=== PATIENT | female | born 1985 | race Caucasian/White ===

== ENCOUNTER 2019-11-15 00:50 | Outpatient (CLI) | payer OTHER, SELFPAY ==
--- NOTE | 2019-11-15 | DI.US_ITS ---
EXAM: US PELVIS TRANSVAGINAL CLINICAL HISTORY: PELVIC AND PERINEAL PAIN, R10.2. TECHNIQUE: Transabdominal and tranvaginal imaging was performed using standard protocol. COMPARISON: No exams were available for comparison FINDINGS: KIDNEYS: Kidneys are symmetric in size. No evidence of renal calculi. No evidence of hydronephrosis. No renal mass or cyst identified. UTERUS: Anteverted. The uterus measures 10.2 x 6.2 x 7.6 cm. Endometrium: 12 millimeters. Internal vascularity is noted. Myometrium: Unremarkable. Cervix: Unremarkable. OVARIES: There are multiple tiny follicles. Right: Cyst or mass: None. Left: Cyst or mass: None. DOPPLER: Color: Symmetric and uniform flow to both ovaries. No hyperemia. CUL-DE-SAC: Free fluid: None. IMPRESSION: 1. Mildly thickened endometrium with increased vascularity.. 2. Multiple tiny bilateral ovarian follicles.. DATA REPOSITORY:
== END 2019-11-15 01:10 ==
PROVIDERS: PCP Physician Assistant; Visit Provider Obstetrics & Gynecology
DX: R10.2 Pelvic and perineal pain (principal); R93.89 Abnormal findings on diagnostic imaging of other specified body structures; N83.01 Follicular cyst of right ovary; N83.02 Follicular cyst of left ovary
CPT/HCPCS: 76830; 76856

== ENCOUNTER 2019-12-14 09:30 | Outpatient (CLI) | payer OTHER, SELFPAY ==
--- NOTE | 2019-12-14 13:31 | DI.RAD_ITS ---
EXAM: XR ELBOW RT COMPLETE CLINICAL HISTORY: PAIN IN RT ELBOW, M25.521. TECHNIQUE: 2D digital imaging was performed. COMPARISON: No exams were available for comparison FINDINGS: BONES: No acute fracture is present. No bony destructive lesion is seen. There is a single orthopedi c screw in the distal humerus. There is deformity of the distal humerus likely reflecting an old fra cture. JOINTS: The elbow is normally aligned. No joint effusion is seen. SOFT TISSUE: Normal. IMPRESSION: No acute abnormality. DATA REPOSITORY: RADIATION DOSE DELIVERED:
== END 2019-12-14 09:50 ==
PROVIDERS: PCP Physician Assistant; Visit Provider Nurse Practitioner Family
DX: M25.521 Pain in right elbow (principal)
CPT/HCPCS: 73080

== ENCOUNTER 2020-09-06 03:11 | Outpatient (CLI) | payer OTHER, SELFPAY ==
--- NOTE | 2020-09-06 | DI.US_ITS ---
EXAM: MG MAMMO DIAGNOSTIC BI CLINICAL HISTORY: MASTODYNIA,N64.4,LT BREAST PAIN OUTER NIPPLE. TECHNIQUE: Craniocaudal and mediolateral oblique Full Field Digital Mammography views with Computer Aided Diagnosis followed by Tomosynthesis and left breast ultrasound. COMPARISON: No exams were available for comparison baseline examination. FINDINGS: Mammography/Tomosynthesis: Masses/Architectural Distortion: None seen. Microcalcifictions: No suspicious pleomorphic-type are seen. Skin Thickening/Nipple Retraction: None. Axilla: Unremarkable. Breast US: Echotexture: Normal appearance of the glandular tissue. Shadowing: No suspicious foci. Cyst: None. Solid lesions: None seen. Ductal dilation: None. No skin thickening or edema. IMPRESSION: 1. No evidence of malignancy is noted. 2. Unless there is more urgent need, follow-up screening mammography is recommended, as per [place] [employer] guidelines. 3. The findings were discussed with the patient on the date of the examination. BI-RADS Category 1 - Negative Breast Density - Category B - Scattered areas of fibroglandular density A negative radiographic report should not delay biopsy if a dominant or clinically suspicious mass is present. Up to ten percent of cancers are not identified on mammography. A negative report may reinforce clinical impression. Adenosis and dense breasts may obscure an underlying neoplasm. False positive reports average 6 to 10%. Patient will receive a letter notifying them of these results.
== END 2020-09-06 03:12 ==
PROVIDERS: PCP Physician Assistant; Visit Provider Nurse Practitioner Family
DX: N64.4 Mastodynia (principal)
CPT/HCPCS: 76642; 77062; 77066; G0279

== ENCOUNTER 2023-09-09 18:11 | Emergency (ER) | payer OTHER, SELFPAY ==
[2023-09-09] VITALS (29 sets, daily range): BP systolic 156–242; BP diastolic 78–99; PULSE 87–127; RESP 13–23; TEMP 36.9; O2SAT 96–100
--- NOTE | 2023-09-09 18:00 | RT.EKG_ITS ---
APPROVED REPORT Exam: Resting ECG Reason for Exam: Near syncope Patient Location: E HR:118 bpm ECG Measurements Heart Rate 118 AXIS MA 166 P 54 QRSd 89 QRS 10 QT 331 T 33 QTc 463 Conclusion Sinus tachycardia...rate> 99 sinus tachycardia, normal axis, normal intervals, non ischemic
[2023-09-09 19:04] LABS: Abs Immature Grans 0.03 10^3/uL (0.0-0.06); Absolute Basophil Count 0.06 10^3/uL (0.0-0.2); Absolute Eosinophil Count 0.14 10^3/uL (0.0-0.7); Absolute Monocyte Count 0.53 10^3/uL (0.1-0.8); Basophils % 0.5; Eosinophils % 1.2; HCT 33.5 % (36.0-46.0); HGB 10.8 g/dL (11.2-15.7); Immature Grans % 0.3; Lymphocytes % 29.7; MCH 27.6 pg (27.0-33.0); MCHC 32.2 % (32.0-36.0); MCV 86 fL (80-95); MPV 9.7 fL (8.0-11.0); Monocytes % 4.6; Neutrophils % 63.7; Platelet Count 371 10^3/uL (130-400); RBC 3.92 10^6/uL (3.93-5.22); RDW 13.8 % (11.7-14.6); RDW-SD 43.1 fL; WBC 11.46 10^3/uL (4.4-10.8)
--- NOTE | 2023-09-09 19:07 | W.ED.GENAD ---
HPI General Date/Time Provider Initiated Documentation: 09/09/23 18:29. HPI Narrative: This 37-year-old female presents with report of vaginal bleeding since yesterday. She states that she has had significant periods and erratic bleeding for the past several months. She states that last evening she started bleeding and going through a pad every several hours, this morning she started having 1 pad per hour at around 11 and has gone through approximately 8 pads and felt very lightheaded which prompted her visit here. She is typically followed in [place]. She denies any chest pain or shortness of breath. She does endorse cramping in her abdomen. She denies any fever or chills. Denies chance of . Had a tubal 20 years ago per patient. Related Data Home Medications Medication Instructions Recorded Confirmed norethindrone acetate 5 mg tablet 10 mg (2 x 5 mg) PO BID #30 tabs 09/09/23 tranexamic acid 650 mg tablet 1,300 mg (2 x 650 mg) PO TID 5 09/09/23 days #30 tabs Previous Rx's Medication Instructions Recorded norethindrone acetate 5 mg tablet 10 mg (2 x 5 mg) PO BID #30 tabs 09/09/23 tranexamic acid 650 mg tablet 1,300 mg (2 x 650 mg) PO TID 5 09/09/23 days #30 tabs Allergies Allergy/AdvReac Type Severity Reaction Status Date / Time latex Allergy Severe Anaphylaxis Verified 09/09/23 21:50 General Stated Complaint: EPIC WILLOW ANALYST NAHED: 2 Course Vital Signs Vital signs: Vital Signs Temperature 36.9 C 09/09/23 18:16 Pulse 127 H 09/09/23 18:16 Respiratory Rate 20 09/09/23 18:16 Blood Pressure 242/99 H 09/09/23 18:16 Pulse Oximetry 96 09/09/23 18:16 Temperature 36.9 C 09/09/23 18:16 Temperature Source Temporal Artery Scan 09/09/23 18:16 Pulse 127 H 09/09/23 18:16 Respiratory Rate 20 09/09/23 18:16 Respiratory Effort Normal, Short of Breath 09/09/23 18:23 Blood Pressure 242/99 H 09/09/23 18:16 Pulse Oximetry 96 09/09/23 18:16 Pain Level 7 09/09/23 18:26 Medical Decision Making This 37-year-old female presents with vaginal bleeding, 1 pad an hour since 11, felt weak and dizzy today Patient is afebrile,, initially tachycardic but this is improved Patient is hypertensive She is bleeding, bright red blood with clots She was given TXA at 1000 mg followed by 10 mg of norethindrone, her bleeding is still dramatically and she has not had any additional bleeding in the emergency department She feels comfortable being discharged home at this time Case was discussed with Dr. Tejeda and she evaluates the patient in the emergency department Patient will follow-up with her doctor regarding her blood pressure and her EPIC WILLOW ANALYST Patient does endorse that she had endometrial biopsy yesterday which she was not transparent regarding during her initial assessment She states I was not expecting this much bleeding At this time I think she stable for discharge home, showing to be given an additional TXA and norenthindrone for home return precautions reviewed and pt expressed understanding Quality:SDOH Health Related Social Needs: No Data to Display PFSH All Active Problems (Updated 09/09/23 @ 21:45 by Hina Tejeda DO) Polycystic ovarian syndrome (Acute) Menometrorrhagia (Acute) Encounter for screening for other viral diseases (Acute) Social History Smoking/Tobacco Use Status: Never Smoking risk assessment performed?: Yes Alcohol Intake: current Alcohol Intake frequency: a few times a month Drug use: Occasionally Substance use type: former substance user Housing: house Do you feel safe at home: Yes Do you feel safe in your relationship?: Yes PAWSS Have you Been Recently Intoxicated or Drunk Within the Last 30 days?: No Have you Ever Experienced Previous Episodes of Alcohol Withdrawal?: No Have you ever Experienced Withdrawal Seizures?: No Have you ever Experienced Delirium Tremens(DT)s?: No Have you ever undergone Alcohol Rehabilitation Treatment (i.e, inpt ot outpatient treatment programs)?: No Have you ever Experienced Blackouts?: No Have you ever Combined Alcohol with other Downers within the last 90 days?: No Have you ever Combined Alcohol with any other Substance of Abuse during the last 90 days?: No Result: 0 Discharge Plan Disposition Patient Disposition: Home Condition: Stable Discharge Details Clinical Impression: Menometrorrhagia Primary Care Provider: Anil Chavez ED Provider: Imani Horner Home Meds and New Rx's Prescriptions: New norethindrone acetate 5 mg tablet 10 mg PO BID Qty: 30 0RF Rx Instructions: take 10 mg every 12 hours if you bleeding has improved and continue for 10 days, you may take an additional 10 mg every 6 hours if you have increased bleeding tranexamic acid 650 mg tablet 1,300 mg PO TID 5 Days Qty: 30 0RF Discharge Instructions Additional Instructions: Take the norethindrone, 10 mg twice a day for the next 10 days, if you develop increased bleeding you may take 10 mg every 6 hours TXA, 1300 mg every 8 hours Follow-up with your EPIC WILLOW ANALYST Return should you have new or worsening complaints Referrals: Anil Chavez [Primary Care Provider] -
[2023-09-09 19:19] LABS: Bilirubin Negative (Negative); Blood Large (Negative); Clarity Turbid (Clear); Glucose Negative (Negative); Ketones Negative (Negative); Leukocyte Esterase Trace (Negative); Nitrite Negative (Negative); Specific Gravity >= 1.030 (1.005-1.025); Urobilinogen 0.2 mg/dL (Up to 0.2); pH 5.5 (5-8)
[2023-09-09 19:23] LABS: ALT 33 U/L (14-59); AST 14 U/L (15-37); Albumin 3.7 g/dL (3.4-5.0); Alkaline Phosphatase 78 U/L (46-116); Anion Gap 9.4 mmol/L (3-11); BUN 10 mg/dL (7-18); Bilirubin, Total 0.2 mg/dL (0.2-1.0); CO2 26.6 mmol/L (21.0-32.0); CREATININE 0.8 mg/dL (0.55-1.02); Calcium 8.9 mg/dL (8.5-10.1); Chloride 105 mmol/L (98-107); Estimated GFR 96.66 (mL/min/1.73m2); Glucose 158 mg/dL (74-106); Potassium 3.4 mmol/L (3.5-5.1); Sodium 141 mmol/L (136-145); Total Protein 7.7 g/dL (6.4-8.2)
[2023-09-09 19:33] LABS: C & S Indicated? Yes; RBC >50 HPF (0-2)
[2023-09-09] MEDS: Tranexamic Acid 1,000 MG/10 ML VIAL 1000 MG IVP (19:34)
[2023-09-09] MEDS: Normal Saline 1,000 ML 1000 ML IV (19:35)
[2023-09-09 19:55] LABS: HCG Qual (Serum) Negative
[2023-09-09] MEDS: Norethindrone 5 MG TAB 10 MG PO (20:31)
[2023-09-09] MEDS: ACETAMINOPHEN 1,000 MG/100 ML BTL 400 MG IVPB (20:47)
[2023-09-09] MEDS: diazePAM 10 MG/2 ML SYR 2.5 MG IVP (20:48)
--- NOTE | 2023-09-09 21:39 | W.GYNCONSULT ---
Date of service: 09/09/23 Time of Service: 21:39 Assessment and Plan Assessment and plan (1) Menometrorrhagia: Status: Acute Assessment and plan: Acute on chronic menometrorrhagia with mild anemia. Patient responded nicely to TXA and oral progesterone. Anticipate discharge home with close follow-up by her primary house mover supervisor. Endometrial sampling per gynecology is pending. Ultrasound scheduled for Wednesday. Recommend continuing norethindrone acetate, 10 mg twice daily increased to 4 times daily if increased bleeding TXA over the course of the next 5 days. Case discussed with SHAYY Moon (2) Polycystic ovarian syndrome: Status: Acute History of Present Illness History of Present Illness Chief Complaint: Vaginal bleeding Narrative: Patient is a 37-year-old 2 para 2 with a history of 2 previous vaginal deliveries. She clinically has a picture consistent with polycystic ovarian syndrome and anovulation. She has hirsutism, obesity, and irregular menstrual cycles. Today, while here in the hospital, had an increase in her vaginal bleeding, which has been heavy over the course of the past few days. She was seen by her primary house mover supervisor yesterday who performed an endometrial sampling. Today, she has been soaking more than a pad an hour for a number of hours for which she presented to the emergency department. Initially she was tachycardic, and did receive IV fluids. Baseline laboratory studies are reasonably normal with a hemoglobin that slightly diminished at 10.8. More than likely this is somewhat hemoconcentrated, however her vital signs are also stable currently with a pulse in the 90s and hypertension. Over the course of 20 minutes we had a conversation regarding her history of abnormal and irregular uterine bleeding. Her primary house mover supervisor has an ultrasound ordered. While she was in the emergency department, she did receive 1 dose of IV TXA, along with norethindrone acetate, 10 mg p.o. which diminished her bleeding allowing for discharge home. She will be discharged home with Aygestin and oral TXA as well. She was strongly encouraged to follow-up with her house mover supervisor and follow recommendations which may be medication therapy, versus IUD, versus surgical intervention based on results of ultrasound, and her endometrial sampling. All of her questions were answered today. Consults Consult date: 09/09/23 Requesting physician: Imani Horner Review of Systems Narrative: Heavy menstrual bleeding, feeling lightheaded Constitutional Constitutional: Reports as per HPI and Reports malaise Eyes Eyes: Reports as per HPI ENT Ears, Nose, Mouth, and Throat: Reports system reviewed and no additional complaints, except as documented Cardiovascular Cardiovascular: Reports as per HPI, Reports system reviewed and no additional complaints, except as documented, Denies chest pain, Denies irregular heart rhythm, Reports lightheadedness and Denies palpitations Respiratory Respiratory: Reports system reviewed and no additional complaints, except as documented, Denies chest congestion and Denies cough Gastrointestinal Gastrointestinal: Reports as per HPI and Reports system reviewed and no additional complaints, except as documented Genitourinary Genitourinary: Reports system reviewed and no additional complaints, except as documented, Reports as per HPI, Reports abnormal menses, Reports abnormal vaginal bleeding and Reports menorrhagia Musculoskeletal Musculoskeletal: Reports system reviewed and no additional complaints, except as documented Neurologic Neurologic: Reports system reviewed and no additional complaints, except as documented Psychiatric Psychiatric: Reports system reviewed and no additional complaints, except as documented Endocrine Endocrine: Denies palpitations PFSH All Active Problems (Updated 09/09/23 @ 21:45 by Hina Tejeda DO) Polycystic ovarian syndrome (Acute) Menometrorrhagia (Acute) Encounter for screening for other viral diseases (Acute) Social History Smoking/Tobacco Use Status: Never Smoking risk assessment performed?: Yes Alcohol Intake: current Alcohol Intake frequency: a few times a month Drug use: Occasionally Substance use type: former substance user Housing: house Do you feel safe at home: Yes Do you feel safe in your relationship?: Yes Exam Const General: cooperative, healthy appearing, comfortable and no acute distress Nutritional Appearance: overweight Orientation: alert and oriented x3 HENMT Head: normal to inspection Eyes General: appearance normal, both eyes and all related structures Neck Neck: normal visual inspection and supple Resp Effort & Inspection: normal respiratory effort, able to speak in complete sentences, no audible wheezes and no cough Cardio Rate: regular rate Rhythm: regular rhythm GI Inspection: normal to inspection Palpation: soft, not firm and no guarding Skin General skin exam: no rashes or lesions noted Neuro General: patient alert, patient awake and patient oriented x3 Extrem General: normal to inspection and no calf tenderness bilaterally Results Last Vital Signs Temp 98.5 F 09/09/23 18:16 Pulse 93 H 09/09/23 21:01 Resp 22 09/09/23 21:20 BP 156/84 H 09/09/23 21:01 Pulse Ox 99 09/09/23 19:30 Labs 09/09/23 18:49 09/09/23 18:49 Labs: Laboratory Results - last 24 hr 09/09/23 09/09/23 18:49 19:04 WBC 11.46 H RBC 3.92 L Hgb 10.8 L Hct 33.5 L MCV 86 MCH 27.6 MCHC 32.2 RDW 13.8 Plt Count 371 MPV 9.7 Immature Gran % 0.3 Neutrophils % 63.7 Lymphocytes % 29.7 Monocytes % 4.6 Eosinophils % 1.2 Basophils % 0.5 Nucleated RBC % 0.0 Absolute Neutrophils 7.30 H Absolute Lymphocytes 3.40 Absolute Monocytes 0.53 Absolute Eosinophils 0.14 Absolute Basophils 0.06 Sodium 141 Potassium 3.4 L Chloride 105 Carbon Dioxide 26.6 Anion Gap 9.4 BUN 10 Creatinine 0.8 Est GFR (CKD-EPI 2020) 96.66 Glucose 158 H Calcium 8.9 Total Bilirubin 0.2 AST 14 L ALT 33 Alkaline Phosphatase 78 Total Protein 7.7 Albumin 3.7 Serum HCG, Qual Negative Urine Color Red Urine Clarity Turbid Urine pH 5.5 Ur Specific [place] >= 1.030 H Urine Protein 100 H Urine Ketones Negative Urine Blood Large H Urine Nitrite Negative Urine Bilirubin Negative Urine Urobilinogen 0.2 Ur Leukocyte Esterase Trace H Urine RBC >50 H Urine WBC Ur Epithelial Cells Not Applicable Urine Crystals Not Applicable Urine Bacteria Not Applicable Urine Mucus Not Applicable Ur Culture Indicated? Yes Urine Glucose Negative Patient ABO/Rh A Positive Antibody Screen NEGATIVE
[2023-09-09] MEDS: Norethindrone 5 MG TAB 20 MG PO (22:17)
[2023-09-09] MEDS: Tranexamic Acid 650 MG TAB 2600 MG PO (22:17)
== END 2023-09-09 22:32 | disposition home or self-care (01) ==
LOC: ER 22:00
PROVIDERS: Emergency Provider Physician Assistant; PCP Physician Assistant
DX: N92.1 Excessive and frequent menstruation with irregular cycle; D64.9 Anemia, unspecified; E28.2 Polycystic ovarian syndrome
CPT/HCPCS: 36415; 80053; 81025; 86850; 86900; 86901; 93005; 96361; 96374; 99284; 81003; 81015; 84703; 85025; 87086; 93010; J0131; J3360

== ENCOUNTER 2025-01-10 02:30 | Outpatient (CLI) | payer OTHER, SELFPAY ==
--- NOTE | 2025-01-10 | DI.MAMMO_ITS ---
Exam(s) MAMMO SCREENING EXAM: MAMMO SCREENING CLINICAL HISTORY: SCREENING, Z12.39 TECHNIQUE: Bilateral full field digital CC and MLO mammographic images were obtained with 3D tomosynthesis and utilizing computer aided detection (CAD). COMPARISON: Comparison is made with prior examinations. FINDINGS: Masses/Architectural Distortion: No suspicious masses or areas of architectural distortion are present. Microcalcifications: No suspicious pleomorphic-type are seen. Skin Thickening/Nipple Retraction: None. IMPRESSION: 1. No significant interval change with no specific features of malignancy noted. 2. Unless there is more urgent need, screening mammography is recommended, as per [place] [employer] guidelines. BI-RADS Category 1 - Negative Breast Density - Category B - There are scattered areas of fibroglandular density. Breast density Category C or D implies that the patient has dense breast tissue. Dense breast tissue can make it harder to find cancer on a mammogram. Dense breast tissue is also associated with an increased risk of breast cancer. This information about the result of the mammogram report was provided to the patient to raise their awareness. Use this report when you speak with the patient about their risks for breast cancer, which includes their family history. At that time, you may recommend additional screening tests (Ultrasound or MRI) as these tests may add significant information. A negative radiographic report should not delay biopsy if a dominant or clinically suspicious mass is present. Up to ten percent of cancers are not identified on mammography. A negative report may reinforce clinical impression. Adenosis and dense breasts may obscure an underlying neoplasm. False positive reports average 6 to 10%. Patient will receive a letter notifying them of these results.
== END 2025-01-10 02:50 ==
LOC: DI 02:30
PROVIDERS: Visit Provider Family Medicine
DX: Z12.31 Encounter for screening mammogram for malignant neoplasm of breast (principal); R92.323 Mammographic fibroglandular density, bilateral breasts
CPT/HCPCS: 77063; 77067